=== PATIENT | male | born 1980 | race African-American/Black ===

== ENCOUNTER 2019-02-21 12:45 | Emergency (ER) | payer BC ==
[~2019-02-21] VITALS: Ht 172.7 cm; Wt 104.3 kg
[2019-02-21 12:48] VITALS: BP 152/89
--- NOTE | 2019-02-21 12:50 | NUR ---
PT TRIAGED AND SENT TO ER LOBBY
--- NOTE | 2019-02-21 15:08 | NUR ---
PT AMBULATES TO BED 4
--- NOTE | 2019-02-21 15:25 | NUR ---
38 YO M BIB SELF PRESENTS TO ED WITH CO INTERMITTENT EPIGASTRIC PAIN X 1 MONTH. PT DENIES PAIN AT THIS TIME BUT STATES LAST EPISODE WAS 3 HOURS AGO. HE REPORTS THAT THE PAIN RADIATES THROUGH HIS ESOPHAGUS AND IS A BURNING SENSATION. PT ALSO REPORTS NAUSEA AND DECREASED APPETITE DURING THESE EPISODES. PT STATES THAT THIS HAPPENS AFTER EATING BUT SOMETIMES COMES OUT OF NOWHERE. PMH: DENIES RX: MYLANTA NEEDED, BUT STATES IT DOESN'T WORK WELL. PT POSITIONED FOR COMFORT. HOB ELEVATED. SIDE RAIL UP X 1. BED IN LOWEST POSITION. VSS. NO APPARENT DISTRESS AT THIS TIME.
[2019-02-21] MEDS ORDERED: DICYCLOMINE HCL LIQUID 10 MG/5 ML UDC PO ONE (15:55)
[2019-02-21] MEDS ORDERED: METOCLOPRAMIDE 10 MG TAB PO ONE (15:55)
[2019-02-21] MEDS ORDERED: PROMETHAZINE 25 MG/ML VIAL IM ONE (15:55)
[2019-02-21] MEDS ORDERED: FAMOTIDINE 20 MG TAB PO ONE (15:55)
[2019-02-21 18:00] VITALS: BP 134/88
--- NOTE | 2019-02-21 18:00 | NUR ---
Patient discharged with v/s stable. Written and verbal after care instructions given and explained. Patient alert, oriented and verbalized understanding of instructions. Ambulatory with steady gait. All questions addressed prior to discharge. ID band removed. Patient advised to follow up with PMD. Rx of PROTONIX 40MG, PEPCID 40MG AND REGLAN 10MG given. Patient educated on indication of medication including possible reaction and side effects. Opportunity to ask questions provided and answered.
== END 2019-02-21 18:00 | disposition home or self-care (01) ==
LOC: MED 12:45
DX: T78.1XXA Other adverse food reactions, not elsewhere classified, initial encounter (principal); K29.70 Gastritis, unspecified, without bleeding; X58.XXXA Exposure to other specified factors, initial encounter
CPT/HCPCS: 96372; 99283; J2550; J8597